=== PATIENT | male | born 1950 | race American Indian/Alaskan Native ===

== ENCOUNTER 2020-02-26 18:15 | Inpatient (IN) | payer OTHER ==
--- NOTE | 2020-02-26 20:39 | Event Note ---
ED Screening Note ED Screening Note: cough with mucus production for a few days chest pain with coughing no fever no v/d no sob no pmhx no allergies to meds HR 112 oxygen 96% on RA This initial assessment/diagnostic orders/clinical plan/treatment(s) is/are subject to change based on patients health status, clinical progression and re-assessment by fellow clinical providers in the ED. Further treatment and workup at subsequent clinical providers discretion. Patient/guardian urged not to elope from the ED as their condition may be serious if not clinically assessed and managed. Initial orders include: CXR, labs, EKG
[2020-02-26 21:11] LABS: Basophils # (Auto) 0.1 K/mm3 (0.0-0.1); Basophils % (Auto) 0.6 % (0.0-1.8); Eosinophils % (Auto) 0.5 % (0.0-4.3); Hematocrit 37.1 % (35.5-45.6); Hemoglobin 12.4 gm/dl (11.8-15.2); Lymphocytes # (Auto) 1.9 K/mm3 (1.2-5.4); Lymphocytes % (Auto) 18.1 % (13.4-35.0); Mean Corpuscular HGB Conc 33 % (32-34); Mean Corpuscular Volume 87 fl (84-94); Monocytes # (Auto) 1.4 K/mm3 (0.0-0.8); Monocytes % (Auto) 13.2 % (0.0-7.3); Platelet Count 434 K/mm3 (140-440); Red Blood Count 4.26 M/mm3 (3.65-5.03); Red Cell Distribution Width 14.6 % (13.2-15.2)
--- NOTE | 2020-02-26 21:19 | XRay Report ---
CHEST 2 VIEWS INDICATION / CLINICAL INFORMATION: cough. COMPARISON: None available. FINDINGS: SUPPORT DEVICES: None. HEART / MEDIASTINUM: No significant abnormality. LUNGS / PLEURA: Patchy bilateral pulmonary opacities are seen. No pneumothorax. ADDITIONAL FINDINGS: No significant additional findings. IMPRESSION: 1. Patchy bilateral pulmonary opacities are concerning for an infectious process, including viral and atypical etiologies. Signer Name: Farzad Weinberg MD Signed: 02/26/2020 9:15 PM Workstation Name: [id number]
[2020-02-26 21:29] LABS: Alanine Aminotransferase 65 units/L (7-56); Albumin 3.5 g/dL (3.9-5); BUN/Creatinine Ratio 10; Blood Urea Nitrogen 11 mg/dL (9-20); Calcium 9.6 mg/dL (8.4-10.2); Hemolysis Index 6
[2020-02-26] MEDS ORDERED: dexAMETHasone 20 MG/5 ML VIAL IV ONE (22:02)
[2020-02-26] MEDS ORDERED: cefTRIAXone/NS 1 GM/50 ML 1 GM/50 ML BAG IV ONE (22:03)
[2020-02-26] MEDS ORDERED: AZITHROMYCIN 500 MG in SODIUM CHLORIDE 0.9% 250ML 250 ML IV ONE (22:03)
--- NOTE | 2020-02-26 22:12 | Emergency Department Report ---
ED Fever HPI - General Chief Complaint: Fever Stated Complaint: FEVER,COUGH PUI?: Yes Time Seen by Provider: 02/26/20 20:36 Source: patient, family Exam Limitations: language barrier - History of Present Illness Initial Comments: CC: fever, cough for a few days HPI: This is a 69 [place] male without significant past medical history who presents with fever, cough fatigue for 2-3 days. Unknown sick contacts. 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 Patient has chest ache with cough. Mild to moderate diffuse chest achiness with cough. Gradual onset of symptoms. Cough is productive. Patient speaks Khmer and German. Nephrew at bedside provided language interpretation. Patient does not smoke tobacco. Timing/Duration: other (2-3 days) Fever Severity/Quality: subjective Fever Therapy ORAL AND MAXILLOFACIAL SURGERY RESIDENT: none Associated Symptoms: chest pain, cough, other (fatigue) ED Review of Systems ROS: Stated complaint: FEVER,COUGH Other details as noted in HPI Comment: All other systems reviewed and negative Constitutional: fever, malaise Respiratory: cough. denies: shortness of breath, wheezing Cardiovascular: chest pain Gastrointestinal: denies: abdominal pain, nausea, vomiting ED Past Medical Hx - Past Medical History Previous Medical History?: No - Surgical History Past Surgical History?: No - Social History Smoking Status: Never Smoker Substance Use Type: None ED Physical Exam - General Limitations: Language Barrier General appearance: alert, in no apparent distress - Head Head exam: Present: atraumatic, normocephalic - Eye Eye exam: Present: normal appearance - ENT ENT exam: Present: mucous membranes moist - Neck Neck exam: Present: normal inspection, full ROM - Respiratory Respiratory exam: Present: normal lung sounds bilaterally, wheezes, decreased breath sounds. Absent: rales, rhonchi, chest wall tenderness, accessory muscle use, prolonged expiratory - Cardiovascular Cardiovascular Exam: Present: normal rhythm, tachycardia, normal heart sounds. Absent: systolic murmur, diastolic murmur, rubs, gallop - GI/Abdominal GI/Abdominal exam: Present: soft, normal bowel sounds. Absent: distended, tenderness, guarding, rebound - Rectal Rectal exam: Present: deferred - Extremities Exam Extremities exam: Present: normal inspection - Neurological Exam Neurological exam: Present: alert, oriented X3 - Psychiatric Psychiatric exam: Present: normal affect, normal mood - Skin Skin exam: Present: warm, dry, intact, normal color. Absent: rash ED Course Vital Signs 02/26/20 19:59 Temperature 98.1 F Pulse Rate 126 H Respiratory 20 Rate Blood Pressure 124/90 O2 Sat by Pulse 94 Oximetry ED Medical Decision Making - Lab Data Result diagrams: 02/26/20 20:52 02/26/20 20:52 Laboratory Results - last 24 hr 02/26/20 02/26/20 20:52 20:52 WBC 10.6 RBC 4.26 Hgb 12.4 Hct 37.1 MCV 87 MCH 29 MCHC 33 RDW 14.6 Plt Count 434 Lymph % (Auto) 18.1 [place] % (Auto) 13.2 H Eos % (Auto) 0.5 Baso % (Auto) 0.6 Lymph # (Auto) 1.9 [place] # (Auto) 1.4 H Eos # (Auto) 0.0 Baso # (Auto) 0.1 Seg Neutrophils % 67.6 Seg Neutrophils # 7.1 Sodium 139 Potassium 4.1 Chloride 103.5 Carbon Dioxide 23 Anion Gap 17 BUN 11 Creatinine 1.1 Estimated GFR > 60 BUN/Creatinine Ratio 10 Glucose 149 H Calcium 9.6 Total Bilirubin 0.60 AST 78 H ALT 65 H Alkaline Phosphatase 55 Troponin T < 0.010 Total Protein 8.2 Albumin 3.5 L Albumin/Globulin Ratio 0.7 - EKG Data -: EKG Interpreted by Wi EKG shows normal: sinus rhythm, axis, intervals, QRS complexes, ST-T waves Rate: tachycardia - EKG Data Interpretation: normal EKG (With exception of tachycardia) 02/26/20 22:14 EKG obtained 2046 EKG interpreted by mo Sinus tachycardia rate 100 bpm normal axis normal intervals no ST-T signs of ischemia - Medical Decision Making Multifocal pneumonia, strong suspicion of COVID-19. Due to age, hypoxia oxygen saturation 94% at rest, large proportion of lung involved on personal review of chest radiograph, patient will benefit from hospitalization. Antibiotics steroids initiated in the emergency department. Patient admitted to the hospital service. Labs reviewed notable for CBC within normal limits, unremarkable differential chemistry reveals mild elevation of AST ALT with normal alk phos normal T bili Patient does not have a history of alcohol use. Differential diagnosis includes fatty liver, viral hepatitis, chronic Tylenol use. Patient will require outpatient evaluation for abnormal liver enzyme levels. Critical care attestation.: If time is entered above; I have spent that time in minutes in the direct care of this critically ill patient, excluding procedure time. ED Disposition Clinical Impression: Multifocal pneumonia, Suspected COVID-19 virus infection Disposition: OP ADMIT IP TO THIS HOSP Is pt being admited?: Yes Does the pt Need Aspirin: No Condition: Fair Instructions: Bacterial Pneumonia (ED)
--- NOTE | 2020-02-26 23:28 | Cat Scan Report ---
CTA chest with contrast INDICATION : P.E. PROTOCOL!!! Patient complains of pleuritic chest pain. TECHNIQUE: Axial imaging performed through the chest, with contrast bolus timing set to maximize opa cification of the pulmonary arteries. 3-plane MIP reformatted images were obtained. All CT scans at this location are performed using CT dose reduction for ALARA by means of automated exposure control. 100 mL of intravenous contrast administered. COMPARISON: Chest x-ray from today FINDINGS: Bolus: Contrast bolus timing is adequate. PTE: No filling defect is present to suggest PTE. Mediastinum: Heart and great vessels appear normal. No pathologic mediastinal adenopathy. Lungs: Patchy multifocal groundglass opacities with a trace left-sided pleural effusion. Upper abdomen: Limited imaging of the upper abdomen shows nothing acute. Bones: Degenerative changes in the spine with nothing acute. IMPRESSION: 1. Negative for PTE. 2. Pulmonary findings as above suggesting an atypical infectious/inflammatory etiology including Covi d pneumonia. Signer Name: Krishna Kenney MD Signed: 02/26/2020 11:24 PM Workstation Name: [id number]
[2020-02-26] MEDS ORDERED: ONDANSETRON 4 MG/2 ML INJ IV PRN (23:47)
[2020-02-26] MEDS ORDERED: MAGNESIUM HYDROXIDE (MOM) ORAL LIQD UDC PO PRN (23:47)
[2020-02-26] MEDS ORDERED: ACETAMINOPHEN 325 MG TAB PO PRN (23:47)
[2020-02-26] MEDS ORDERED: MORPHINE 2 MG/1 ML INJ IV PRN (23:47)
--- NOTE | 2020-02-26 23:53 | History and Physical Report ---
History of Present Illness Date of examination: 02/26/20 Date of admission: 02/26/20 22:03 Chief complaint: Cough Fever History of present illness: 69-year-old [place] male with no significant past medical history presenting to the emergency room today complaining of cough, generalized fatigue and fever which has been ongoing for the past 2 to 3 days. He has had some mild chest discomfort with the cough. Cough is productive of some whitish sputum. 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 Denies any contact with anyone with COVID-19. Brother was up by the bedside was able to interpret as patient speaks minimal Tam[place]ight. Work-up in the emergency room today chest x-ray reveals pneumonia, CT angiogram of the chest was negative for PE and also remarkable for underlying infectious process. Patient commenced on empiric IV antibiotics and also placed on isolation precautions for possible Covid. Past History Past Medical History: No medical history Past Surgical History: No surgical history Social history: no significant social history Family history: no significant family history Medications and Allergies Allergies Allergy/AdvReac Type Severity Reaction Status Date / Time No Known Allergies Allergy Verified 02/26/20 19:37 Review of Systems Constitutional: fever, chills Ears, nose, mouth and throat: no nasal congestion, no sore throat Cardiovascular: no chest pain, no palpitations Respiratory: cough, shortness of breath Genitourinary Male: no dysuria, no hematuria, no flank pain Musculoskeletal: no neck pain, no low back pain Integumentary: no rash, no pruritis Neurological: no headaches, no confusion Psychiatric: no anxiety, no depression Exam - Constitutional Vitals: Temp Pulse Resp BP Pulse Ox 98.1 F 126 H 20 124/90 94 02/26/20 19:59 02/26/20 19:59 02/26/20 19:59 02/26/20 19:59 02/26/20 19:59 General appearance: Present: no acute distress, well-nourished - EENT Eyes: Present: PERRL, EOM intact. Absent: scleral icterus ENT: hearing intact, clear oral mucosa, dentition normal - Neck Neck: Present: supple, normal ROM - Respiratory Respiratory effort: normal Respiratory: bilateral: diminished - Cardiovascular Rhythm: regular Heart Sounds: Present: S1 & S2. Absent: gallop, systolic murmur, diastolic murmur, rub - Extremities Extremities: no ischemia, pulses intact, pulses symmetrical, No edema, Full ROM Peripheral Pulses: within normal limits - Abdominal General gastrointestinal: Present: soft, non-tender, non-distended. Absent: mass - Integumentary Integumentary: Present: clear, warm, dry. Absent: rash - Musculoskeletal Musculoskeletal: strength equal bilaterally - Psychiatric Psychiatric: appropriate mood/affect, intact judgment & insight, memory intact, cooperative - Neurologic Neurologic: CNII-XII intact, no focal deficits, moves all extremities HEART Score - HEART Score Troponin: Troponin T < 0.010 ng/mL (0.00-0.029) 02/26/20 20:52 Results - Labs CBC & Chem 7: 02/26/20 20:52 02/26/20 22:51 Labs: Abnormal lab results 02/26/20 02/26/20 Range/Units 20:52 20:52 [place] % (Auto) 13.2 H (0.0-7.3) % [place] # (Auto) 1.4 H (0.0-0.8) K/mm3 Glucose 149 H (75-100) mg/dL AST 78 H (5-40) units/L ALT 65 H (7-56) units/L Albumin 3.5 L (3.9-5) g/dL Assessment and Plan - Patient Problems (1) Multifocal pneumonia Current Visit: Yes Status: Acute Plan to address problem: Patient placed on empiric IV antibiotics and IV steroid. We will also rule out COVID-19. (2) Suspected COVID-19 virus infection Current Visit: Yes Status: Acute Plan to address problem: Patient placed on isolation precautions and await COVID-19 testing. Consult placed to infectious disease for evaluation. (3) DVT prophylaxis Current Visit: Yes Status: Acute Plan to address problem: Patient placed on subcutaneous Lovenox. (4) Full code status Current Visit: Yes Status: Acute Plan to address problem: Patient is a full code.
[2020-02-27] MEDS: SODIUM CHLORIDE 0.9% 1000 ML 1,000 ML IV SCH (01:31)
[2020-02-27 02:50] LABS: C-Reactive Protein 22.8 mg/dL (0.00-1.30)
[2020-02-27 07:51] LABS: Basophils % (Auto) 0.5 % (0.0-1.8); Hematocrit 36.2 % (35.5-45.6); Lymphocytes % (Auto) 9.9 % (13.4-35.0); Mean Corpuscular HGB Conc 33 % (32-34); Mean Corpuscular Volume 86 fl (84-94); Monocytes # (Auto) 0.4 K/mm3 (0.0-0.8); Monocytes % (Auto) 4.1 % (0.0-7.3); Platelet Count 432 K/mm3 (140-440); Red Blood Count 4.21 M/mm3 (3.65-5.03); Red Cell Distribution Width 14.5 % (13.2-15.2)
[2020-02-27 08:01] LABS: INR 1.21 (0.87-1.13)
[2020-02-27 08:12] LABS: BUN/Creatinine Ratio 11; Blood Urea Nitrogen 11 mg/dL (9-20); Calcium 9.7 mg/dL (8.4-10.2); Hemolysis Index 8
[2020-02-27] MEDS ORDERED: dexAMETHasone 4 MG/ML VIAL IV SCH ×2 (10:00→17:00)
--- NOTE | 2020-02-27 10:50 | Consultation ---
History of Present Illness - Reason for Consult Consult date: 02/27/20 COVID-19 rule out Requesting physician: GUERA BAUTISTA - History of Present Illness The patient is a 69-year-old male admitted to the hospital with cough, shortness of breath and fever going on for 2 to 3 days prior to admission. Upon evaluation in the emergency room, was afebrile, noted to have hypoxia, is currently saturating 95% on 2 L oxygen. COVID-19 test has been ordered but pe nding, CTA negative for pulmonary embolism, showed bilateral atypical pneumonia. Review of Systems: reviewed in the chart, unable to obtain, minimize risk of transmission Past History Past Medical History: No medical history Past Surgical History: No surgical history Social history: no significant social history Family history: no significant family history Medications and Allergies Allergies Allergy/AdvReac Type Severity Reaction Status Date / Time No Known Allergies Allergy Verified 02/26/20 19:37 Home Medications Medication Instructions Recorded Confirmed Last Taken Type No Known Home Medications [No 02/27/20 02/27/20 Unknown History Reported Home Medications] Active Meds: Active Medications Acetaminophen (Acetaminophen 325 Mg Tab) 650 mg PO Q4H PRN PRN Reason: Pain MILD(1-3)/Fever >100.5/WOLFF Dexamethasone (Dexamethasone 4 Mg/Ml Vial) 6 mg IV Q24HR [facility] Stop: 03/06/20 10:01 Last Admin: 02/27/20 09:13 Dose: 6 mg Documented by: Enoxaparin Sodium (Enoxaparin 40 Mg/0.4 Ml Inj) 40 mg SUB-Q QDAY@2200 [facility]; Protocol Sodium Chloride (Nacl 0.9% 1000 Ml) 1,000 mls @ 75 mls/hr IV DIRECT [facility] Last Admin: 02/27/20 01:31 Dose: 75 mls/hr Documented by: Ceftriaxone Sodium (Rocephin/Ns 2 Gm/100 Ml) 2 gm in 100 mls @ 200 mls/hr IV Q24H [facility]; Protocol Azithromycin 500 mg/ Sodium (Chloride) 250 mls @ 250 mls/hr IV Q24H [facility]; Protocol Stop: 03/01/20 22:59 Magnesium Hydroxide (Magnesium Hydroxide (Mom) Oral Liqd Udc) 30 ml PO Q4H PRN PRN Reason: Constipation Morphine Sulfate (Morphine 2 Mg/1 Ml Inj) 2 mg IV Q4H PRN PRN Reason: Pain, Moderate (4-6) Ondansetron HCl (Ondansetron 4 Mg/2 Ml Inj) 4 mg IV Q8H PRN PRN Reason: Nausea And Vomiting Sodium Chloride (Sodium Chloride 0.9% 10 Ml Flush Syringe) 10 ml IV BID [facility] Last Admin: 02/27/20 09:14 Dose: 10 ml Documented by: Sodium Chloride (Sodium Chloride 0.9% 10 Ml Flush Syringe) 10 ml IV PRN PRN PRN Reason: LINE FLUSH Physical Examination - Physical Exam Narrative exam: Physical Exam (reviewed in chart to minimize risk of transmission) Constitutional: deferred Head, Ears, Nose: deferred Eyes: deferred Neck: deferred Oral: deferred Cardiovascular: deferred Respiratory: deferred GI: deferred Musculoskeletal: deferred Skin: deferred Hem/Lymphatic: deferred Psych: deferred Neurological: deferred - Constitutional Vitals: Vital Signs Temp Pulse Resp BP Pulse Ox 99.7 F H 79 18 140/96 97 02/27/20 05:12 02/27/20 05:12 02/27/20 05:12 02/27/20 05:12 02/27/20 05:12 Temperature -Last 24 Hours Temperature 99.7 F Temperature 98.5 F Temperature 99 F Temperature 98.1 F Results - Labs CBC & Chem 7: 02/27/20 07:06 02/27/20 07:06 Labs: Abnormal lab results 02/26/20 02/26/20 02/26/20 Range/Units 20:52 20:52 22:51 Lymph % (Auto) (13.4-35.0) % [place] % (Auto) 13.2 H (0.0-7.3) % Lymph # (Auto) (1.2-5.4) K/mm3 [place] # (Auto) 1.4 H (0.0-0.8) K/mm3 Seg Neutrophils % (40.0-70.0) % Seg Neutrophils # (1.8-7.7) K/mm3 PT (12.2-14.9) Sec. INR (0.87-1.13) D-Dimer 2542.58 H (0-234) ng/mlDDU Potassium (3.6-5.0) mmol/L Glucose 149 H (75-100) mg/dL Ferritin (30.0-300.0) ng/mL AST 78 H (5-40) units/L ALT 65 H (7-56) units/L Lactate Dehydrogenase (91-180) units/L C-Reactive Protein (0.00-1.30) mg/dL Albumin 3.5 L (3.9-5) g/dL 02/26/20 02/26/20 02/27/20 Range/Units 22:51 22:51 07:06 Lymph % (Auto) 9.9 L (13.4-35.0) % [place] % (Auto) (0.0-7.3) % Lymph # (Auto) 1.0 L (1.2-5.4) K/mm3 [place] # (Auto) (0.0-0.8) K/mm3 Seg Neutrophils % 85.5 H (40.0-70.0) % Seg Neutrophils # 8.8 H (1.8-7.7) K/mm3 PT (12.2-14.9) Sec. INR (0.87-1.13) D-Dimer (0-234) ng/mlDDU Potassium (3.6-5.0) mmol/L Glucose 119 H (75-100) mg/dL Ferritin 360.6 H (30.0-300.0) ng/mL AST (5-40) units/L ALT (7-56) units/L Lactate Dehydrogenase 353 H (91-180) units/L C-Reactive Protein 22.80 H (0.00-1.30) mg/dL Albumin (3.9-5) g/dL 02/27/20 02/27/20 Range/Units 07:06 07:06 Lymph % (Auto) (13.4-35.0) % [place] % (Auto) (0.0-7.3) % Lymph # (Auto) (1.2-5.4) K/mm3 [place] # (Auto) (0.0-0.8) K/mm3 Seg Neutrophils % (40.0-70.0) % Seg Neutrophils # (1.8-7.7) K/mm3 PT 15.1 H (12.2-14.9) Sec. INR 1.21 H (0.87-1.13) D-Dimer (0-234) ng/mlDDU Potassium 5.5 H D (3.6-5.0) mmol/L Glucose 208 H (75-100) mg/dL Ferritin (30.0-300.0) ng/mL AST (5-40) units/L ALT (7-56) units/L Lactate Dehydrogenase (91-180) units/L C-Reactive Protein (0.00-1.30) mg/dL Albumin (3.9-5) g/dL - Imaging and Cardiology Chest x-ray: report reviewed, image reviewed (b/l atypical pneumonia) Assessment and Plan Cultures: SARS CoV2 PCR: Pending A/P: 69/M with: #Bilateral pneumonia: Likely secondary to COVID-19. Test is pending at this time. CTA negative for pulmonary embolism. Procalcitonin is normal. #Acute hypoxic respiratory failure #Transaminitis Recs: -IV/PO Dexamethasone 6 mg daily x 10 days -High suspicion for COVID-19, will start IV remdesivir -prophylactic anticoagulation based on d-dimer per hospital protocol -trend ferritin, LDH, d-dimer, CRP every 2-3 days for risk stratification and to assess disease progression -Procalcitonin is low, antibiotics discontinued -get ambulatory sats in AM Mariela Browne MD, FACP [facility] O: [phone] F: [phone]
--- NOTE | 2020-02-27 15:59 | Progress Note ---
Assessment and Plan - Patient Problems (1) Multifocal pneumonia Current Visit: Yes Status: Acute Plan to address problem: Patient placed on empiric IV antibiotics and IV steroid. We will also rule out COVID-19. (2) Suspected COVID-19 virus infection Current Visit: Yes Status: Acute Plan to address problem: Patient is Covid positive if the oxygen requirements are less than the primary team will manage Patient also started on vitamin C and vitamin D and zinc 3) Elevated D-dimer Current Visit: Yes Status: Acute Patient started on Lovenox 100 mg subcu every 12 (4) Full code status Current Visit: Yes Status: Acute Plan to address problem: Patient is a full code. Subjective Date of service: 02/27/20 Interval history: The patient is a 69-year-old male admitted to the hospital with cough, shortness of breath and fever going on for 2 to 3 days prior to admission. Upon evaluation in the emergency room, was afebrile, noted to have hypoxia, is currently saturating 95% on 2 L oxygen. COVID-19 test has been ordered but pending, CTA negative for pulmonary embolism, showed bilateral atypical pne umonia. Review of Systems: reviewed in the chart, unable to obtain, minimize risk of transmission Past History Past Medical History: No medical history Past Surgical History: No surgical history Social history: no significant social history Family history: no significant family history Medications and Allergies Allergies Allergy/AdvReac Type Severity Reaction Status Date / Time No Known Allergies Allergy Verified 02/26/20 19:37 Home Medications Medication Instructions Recorded Confirmed Last Taken Type No Known Home Medications [No 02/27/20 02/27/20 Unknown History Reported Home Medications] Active Meds: Active Medications Acetaminophen (Acetaminophen 325 Mg Tab) 650 mg PO Q4H PRN PRN Reason: Pain MILD(1-3)/Fever >100.5/WOLFF Dexamethasone (Dexamethasone 4 Mg/Ml Vial) 6 mg IV Q24HR [facility] Stop: 03/06/20 10:01 Last Admin: 02/27/20 09:13 Dose: 6 mg Documented by: Enoxaparin Sodium (Enoxaparin 40 Mg/0.4 Ml Inj) 40 mg SUB-Q QDAY@2200 [facility]; Protocol Sodium Chloride (Nacl 0.9% 1000 Ml) 1,000 mls @ 75 mls/hr IV DIRECT [facility] Last Admin: 12/22/20 01:31 Dose: 75 mls/hr Documented by: Ceftriaxone Sodium (Rocephin/Ns 2 Gm/100 Ml) 2 gm in 100 mls @ 200 mls/hr IV Q24H [facility]; Protocol Azithromycin 500 mg/ Sodium (Chloride) 250 mls @ 250 mls/hr IV Q24H [facility]; Protocol Stop: 03/01/20 22:59 Magnesium Hydroxide (Magnesium Hydroxide (Mom) Oral Liqd Udc) 30 ml PO Q4H PRN PRN Reason: Constipation Morphine Sulfate (Morphine 2 Mg/1 Ml Inj) 2 mg IV Q4H PRN PRN Reason: Pain, Moderate (4-6) Ondansetron HCl (Ondansetron 4 Mg/2 Ml Inj) 4 mg IV Q8H PRN PRN Reason: Nausea And Vomiting Sodium Chloride (Sodium Chloride 0.9% 10 Ml Flush Syringe) 10 ml IV BID [facility] Last Admin: 02/27/20 09:14 Dose: 10 ml Documented by: Sodium Chloride (Sodium Chloride 0.9% 10 Ml Flush Syringe) 10 ml IV PRN PRN PRN Reason: LINE FLUSH Objective - Constitutional Vitals: Vital Signs - 12hr 02/27/20 02/27/20 05:12 12:43 Temperature 99.7 F H 98.0 F Pulse Rate 79 91 H Respiratory 18 20 Rate Blood Pressure 140/96 137/92 O2 Sat by Pulse 97 95 Oximetry General appearance: Present: no acute distress, well-nourished - EENT Eyes: PERRL, EOM intact ENT: hearing intact, clear oral mucosa Ears: bilateral: normal - Neck Neck: supple, normal ROM - Respiratory Respiratory effort: normal Respiratory: bilateral: CTA - Breasts Breasts: normal - Cardiovascular Heart rate: 78 Rhythm: regular Heart Sounds: Present: S1 & S2. Absent: gallop, rub Extremities: pulses intact, No edema, normal color, Full ROM - Gastrointestinal General gastrointestinal: Present: soft, non-tender, non-distended, normal bowel sounds - Genitourinary Male genitourinary: normal - Integumentary Integumentary: clear, warm, dry - Musculoskeletal Musculoskeletal: 1, strength equal bilaterally - Neurologic Neurologic: moves all extremities - Psychiatric Psychiatric: memory intact, appropriate mood/affect, intact judgment & insight - Labs CBC & Chem 7: 02/27/20 07:06 02/27/20 07:06 Labs: Abnormal lab results 02/26/20 02/26/20 02/26/20 Range/Units 20:52 20:52 22:51 Lymph % (Auto) (13.4-35.0) % [place] % (Auto) 13.2 H (0.0-7.3) % Lymph # (Auto) (1.2-5.4) K/mm3 [place] # (Auto) 1.4 H (0.0-0.8) K/mm3 Seg Neutrophils % (40.0-70.0) % Seg Neutrophils # (1.8-7.7) K/mm3 PT (12.2-14.9) Sec. INR (0.87-1.13) D-Dimer 2542.58 H (0-234) ng/mlDDU Potassium (3.6-5.0) mmol/L Glucose 149 H (75-100) mg/dL Ferritin (30.0-300.0) ng/mL AST 78 H (5-40) units/L ALT 65 H (7-56) units/L Lactate Dehydrogenase (91-180) units/L C-Reactive Protein (0.00-1.30) mg/dL Albumin 3.5 L (3.9-5) g/dL Coronavirus (PCR) (Negative) 02/26/20 02/26/20 02/27/20 Range/Units 22:51 22:51 07:06 Lymph % (Auto) 9.9 L (13.4-35.0) % [place] % (Auto) (0.0-7.3) % Lymph # (Auto) 1.0 L (1.2-5.4) K/mm3 [place] # (Auto) (0.0-0.8) K/mm3 Seg Neutrophils % 85.5 H (40.0-70.0) % Seg Neutrophils # 8.8 H (1.8-7.7) K/mm3 PT (12.2-14.9) Sec. INR (0.87-1.13) D-Dimer (0-234) ng/mlDDU Potassium (3.6-5.0) mmol/L Glucose 119 H (75-100) mg/dL Ferritin 360.6 H (30.0-300.0) ng/mL AST (5-40) units/L ALT (7-56) units/L Lactate Dehydrogenase 353 H (91-180) units/L C-Reactive Protein 22.80 H (0.00-1.30) mg/dL Albumin (3.9-5) g/dL Coronavirus (PCR) (Negative) 02/27/20 02/27/20 02/27/20 Range/Units 07:06 07:06 Unknown Lymph % (Auto) (13.4-35.0) % [place] % (Auto) (0.0-7.3) % Lymph # (Auto) (1.2-5.4) K/mm3 [place] # (Auto) (0.0-0.8) K/mm3 Seg Neutrophils % (40.0-70.0) % Seg Neutrophils # (1.8-7.7) K/mm3 PT 15.1 H (12.2-14.9) Sec. INR 1.21 H (0.87-1.13) D-Dimer (0-234) ng/mlDDU Potassium 5.5 H D (3.6-5.0) mmol/L Glucose 208 H (75-100) mg/dL Ferritin (30.0-300.0) ng/mL AST (5-40) units/L ALT (7-56) units/L Lactate Dehydrogenase (91-180) units/L C-Reactive Protein (0.00-1.30) mg/dL Albumin (3.9-5) g/dL Coronavirus (PCR) Positive A (Negative) HEART Score - HEART Score Troponin: Troponin T < 0.010 ng/mL (0.00-0.029) 02/26/20 20:52
[2020-02-27] MEDS ORDERED: REMDESIVIR 200 MG in SODIUM CHLORIDE 0.9% 250ML 250 ML IV ONE (17:00)
[2020-02-27] MEDS: ENOXAPARIN 100 MG/1 ML INJ SUB-Q SCH (17:14)
[2020-02-27] MEDS: SODIUM CHLORIDE 0.9% 50 ML IVPB IV SCH (17:14)
[2020-02-27] MEDS: CHOLECALCIFEROL (VIT D3) 1000 UNIT (25 mcg) TAB PO SCH (17:15)
[2020-02-27] MEDS: ZINC SULFATE 220 MG CAP PO SCH (21:43)
[2020-02-27] MEDS: ASCORBIC ACID 500 MG TAB PO SCH (21:43)
[2020-02-27] MEDS ORDERED: AZITHROMYCIN 500 MG in SODIUM CHLORIDE 0.9% 250ML 250 ML IV SCH (22:00)
[2020-02-27] MEDS ORDERED: cefTRIAXone/NS 2 GM/100 ML 2 GM/100 ML BAG IV SCH (22:00)
[2020-02-27] MEDS ORDERED: ENOXAPARIN 40 MG/0.4 ML INJ SUB-Q SCH (22:00)
[2020-02-28] MEDS: ENOXAPARIN 100 MG/1 ML INJ SUB-Q SCH ×2 (05:45→17:28)
[2020-02-28 06:06] LABS: Basophils # (Auto) 0.1 K/mm3 (0.0-0.1); Basophils % (Auto) 0.5 % (0.0-1.8); Hematocrit 33.3 % (35.5-45.6); Hemoglobin 11.1 gm/dl (11.8-15.2); Lymphocytes # (Auto) 2.1 K/mm3 (1.2-5.4); Lymphocytes % (Auto) 13.1 % (13.4-35.0); Mean Corpuscular HGB Conc 33 % (32-34); Mean Corpuscular Volume 87 fl (84-94); Monocytes # (Auto) 1.4 K/mm3 (0.0-0.8); Monocytes % (Auto) 8.7 % (0.0-7.3); Platelet Count 445 K/mm3 (140-440); Red Blood Count 3.85 M/mm3 (3.65-5.03); Red Cell Distribution Width 14.4 % (13.2-15.2)
[2020-02-28] MEDS: SODIUM CHLORIDE 0.9% 1000 ML 1,000 ML IV SCH (06:07)
[2020-02-28 06:28] LABS: Alanine Aminotransferase 128 units/L (7-56); BUN/Creatinine Ratio 15; Blood Urea Nitrogen 12 mg/dL (9-20); Calcium 9.2 mg/dL (8.4-10.2); Hemolysis Index 3
[2020-02-28] MEDS ORDERED: DEXAMETHASONE 4 MG TAB PO SCH (10:00)
[2020-02-28] MEDS: ASCORBIC ACID 500 MG TAB PO SCH ×2 (10:02→21:59)
[2020-02-28] MEDS: ZINC SULFATE 220 MG CAP PO SCH ×2 (10:02→22:00)
[2020-02-28] MEDS: CHOLECALCIFEROL (VIT D3) 1000 UNIT (25 mcg) TAB PO SCH (10:02)
[2020-02-28] MEDS: dexAMETHasone 4 MG/ML VIAL IV SCH (10:03)
--- NOTE | 2020-02-28 12:53 | Consultation ---
History of Present Illness Consult date: 02/28/20 Requesting physician: SHELLI DAVILA Reason for consult: hypoxemia History of present illness: 69 [facility]. Found to have COVID 19. patient only speaks minimal french so history is from chart. Remainder is negative. Past History Past Medical History: No medical history Past Surgical History: No surgical history Social history: no significant social history Family history: no significant family history Medications and Allergies Allergies Allergy/AdvReac Type Severity Reaction Status Date / Time No Known Allergies Allergy Verified 02/26/20 19:37 Home Medications Medication Instructions Recorded Confirmed Last Taken Type No Known Home Medications [No 02/27/20 02/27/20 Unknown History Reported Home Medications] Active Meds: Active Medications Acetaminophen (Acetaminophen 325 Mg Tab) 650 mg PO Q4H PRN PRN Reason: Pain MILD(1-3)/Fever >100.5/WOLFF Ascorbic Acid (Ascorbic Acid 500 Mg Tab) 1,000 mg PO BID [facility] Last Admin: 02/28/20 10:02 Dose: 1,000 mg Documented by: Cholecalciferol (Cholecalciferol (Vit D3) 1000 Unit (25 Mcg) Tab) 1,000 unit PO QDAY [facility] Last Admin: 02/28/20 10:02 Dose: 1,000 unit Documented by: Dexamethasone (Dexamethasone 4 Mg/Ml Vial) 8 mg IV Q24H [facility] Stop: 03/06/20 12:00 Last Admin: 02/28/20 10:03 Dose: 8 mg Documented by: Enoxaparin Sodium (Enoxaparin 100 Mg/1 Ml Inj) 100 mg SUB-Q Q12H [facility]; Protocol Last Admin: 02/28/20 05:45 Dose: 100 mg Documented by: REMDESIVIR 100 mg/ Sodium (Chloride) 250 mls @ 500 mls/hr IV Q24HR@2100 [facility] Stop: 03/02/20 21:29 Magnesium Hydroxide (Magnesium Hydroxide (Mom) Oral Liqd Udc) 30 ml PO Q4H PRN PRN Reason: Constipation Morphine Sulfate (Morphine 2 Mg/1 Ml Inj) 2 mg IV Q4H PRN PRN Reason: Pain, Moderate (4-6) Ondansetron HCl (Ondansetron 4 Mg/2 Ml Inj) 4 mg IV Q8H PRN PRN Reason: Nausea And Vomiting Sodium Chloride (Sodium Chloride 0.9% 10 Ml Flush Syringe) 10 ml IV BID [facility] Last Admin: 02/28/20 10:02 Dose: 10 ml Documented by: Sodium Chloride (Sodium Chloride 0.9% 10 Ml Flush Syringe) 10 ml IV PRN PRN PRN Reason: LINE FLUSH Sodium Chloride (Sodium Chloride 0.9% 50 Ml Ivpb) 50 ml IV Q24HR@2100 [facility] Stop: 03/02/20 21:01 Last Admin: 02/27/20 17:14 Dose: 50 ml Documented by: Zinc Sulfate (Zinc Sulfate 220 Mg Cap) 220 mg PO BID [facility] Last Admin: 02/28/20 10:02 Dose: 220 mg Documented by: Physical Examination Vital signs: Vital Signs Temp Pulse Resp BP Pulse Ox 98.1 F 126 H 20 124/90 94 02/26/20 19:59 02/26/20 19:59 02/26/20 19:59 02/26/20 19:59 02/26/20 19:59 Patient not examined in person to preserve PPE during the global pandemic of COVID 19 Results - Laboratory Findings CBC and BMP: 02/28/20 05:00 02/28/20 05:00 PT/INR, D-dimer PT 15.1 Sec. (12.2-14.9) H 02/27/20 07:06 INR 1.21 (0.87-1.13) H 02/27/20 07:06 D-Dimer 2542.58 ng/mlDDU (0-234) H 02/26/20 22:51 Abnormal lab findings: Abnormal Labs 02/26/20 02/26/20 02/26/20 20:52 20:52 22:51 WBC Hgb Hct Plt Count Lymph % (Auto) [place] % (Auto) 13.2 H Lymph # (Auto) [place] # (Auto) 1.4 H Seg Neutrophils % Seg Neutrophils # PT INR D-Dimer 2542.58 H Potassium Glucose 149 H Ferritin AST 78 H ALT 65 H Lactate Dehydrogenase C-Reactive Protein Albumin 3.5 L Coronavirus (PCR) 02/26/20 02/26/20 02/27/20 22:51 22:51 07:06 WBC Hgb Hct Plt Count Lymph % (Auto) 9.9 L [place] % (Auto) Lymph # (Auto) 1.0 L [place] # (Auto) Seg Neutrophils % 85.5 H Seg Neutrophils # 8.8 H PT INR D-Dimer Potassium Glucose 119 H Ferritin 360.6 H AST ALT Lactate Dehydrogenase 353 H C-Reactive Protein 22.80 H Albumin Coronavirus (PCR) 02/27/20 02/27/20 02/27/20 07:06 07:06 Unknown WBC Hgb Hct Plt Count Lymph % (Auto) [place] % (Auto) Lymph # (Auto) [place] # (Auto) Seg Neutrophils % Seg Neutrophils # PT 15.1 H INR 1.21 H D-Dimer Potassium 5.5 H D Glucose 208 H Ferritin AST ALT Lactate Dehydrogenase C-Reactive Protein Albumin Coronavirus (PCR) Positive A 02/28/20 02/28/20 05:00 05:00 WBC 15.8 H Hgb 11.1 L Hct 33.3 L Plt Count 445 H Lymph % (Auto) 13.1 L [place] % (Auto) 8.7 H Lymph # (Auto) [place] # (Auto) 1.4 H Seg Neutrophils % 77.7 H Seg Neutrophils # 12.2 H PT INR D-Dimer Potassium Glucose 147 H Ferritin AST 132 H ALT 128 H Lactate Dehydrogenase C-Reactive Protein Albumin 3.0 L Coronavirus (PCR) - Diagnostic Findings Chest x-ray: image reviewed CT scan - chest: image reviewed Assessment and Plan 1. Agree with steroids and remdesivir 2. Supplemental O2, but wean for sats >88% 3. Prone during the day and sleep prone at night 4. Stopped IVF's as long as patient is eating and drinking adequately 5. Guarded prognosis.
--- NOTE | 2020-02-28 14:18 | Progress Note ---
Assessment and Plan Cultures: SARS CoV2 PCR: positive A/P: 69/M with: #Bilateral pneumonia: secondary to COVID-19. CTA negative for pulmonary embolism. Procalcitonin is normal. #Acute hypoxic respiratory failure #Transaminitis Recs: -IV/PO Dexamethasone 6 mg daily x 10 days -continue IV remdesivir, D2 -prophylactic anticoagulation based on d-dimer per hospital protocol -trend ferritin, LDH, d-dimer, CRP every 2-3 days for risk stratification and to assess disease progression -get ambulatory sats in AM, if better, can discharge, does not need to complete full course of Remdesivir Mariela Browne MD, FACP [facility] ([facility] O: [phone] F: [phone] Subjective Date of service: 02/28/20 Interval history: no fever. on oxygen. Objective - Exam Narrative Exam: Physical Exam (reviewed in chart to minimize risk of transmission) Constitutional: deferred Head, Ears, Nose: deferred Eyes: deferred Neck: deferred Oral: deferred Cardiovascular: deferred Respiratory: deferred GI: deferred Musculoskeletal: deferred Skin: deferred Hem/Lymphatic: deferred Psych: deferred Neurological: deferred - Constitutional Vitals: Vital Signs Temp Pulse Resp BP Pulse Ox 97.8 F 80 20 160/105 97 02/28/20 11:47 02/28/20 11:47 02/28/20 11:47 02/28/20 11:47 02/28/20 11:47 Temperature -Last 24 Hours Temperature 97.8 F Temperature 97.8 F Temperature 98.5 F Temperature 97.3 F - Labs CBC & Chem 7: 02/28/20 05:00 02/28/20 05:00 Labs: Abnormal lab results 02/28/20 02/28/20 Range/Units 05:00 05:00 WBC 15.8 H (4.5-11.0) K/mm3 Hgb 11.1 L (11.8-15.2) gm/dl Hct 33.3 L (35.5-45.6) % Plt Count 445 H (140-440) K/mm3 Lymph % (Auto) 13.1 L (13.4-35.0) % [place] % (Auto) 8.7 H (0.0-7.3) % [place] # (Auto) 1.4 H (0.0-0.8) K/mm3 Seg Neutrophils % 77.7 H (40.0-70.0) % Seg Neutrophils # 12.2 H (1.8-7.7) K/mm3 Glucose 147 H (75-100) mg/dL AST 132 H (5-40) units/L ALT 128 H (7-56) units/L Albumin 3.0 L (3.9-5) g/dL
--- NOTE | 2020-02-28 18:28 | Progress Note ---
Assessment and Plan - Patient Problems (1) Multifocal pneumonia Current Visit: Yes Status: Acute Plan to address problem: Patient placed on empiric IV antibiotics and IV steroid. We will also rule out COVID-19. (2) Suspected COVID-19 virus infection Current Visit: Yes Status: Acute Plan to address problem: Patient is Covid positive if the oxygen requirements are less than the primary team will manage Patient also started on vitamin C and vitamin D and zinc Patient on 5 L of nasal cannula oxygen Otherwise comfortable 3) Elevated D-dimer Current Visit: Yes Status: Acute Patient started on Lovenox 100 mg subcu every 12 (4) Full code status Current Visit: Yes Status: Acute Plan to address problem: Patient is a full code. Subjective Date of service: 02/28/20 Principal diagnosis: COVID-19 positive test (U07.1, COVID-19) with Acute Pneumonia (J12.89, O Interval history: 69-year-old [place] male with no significant past medical history presenting to the emergency room today complaining of cough, generalized fatigue and fever which has been ongoing for the past 2 to 3 days. He has had some mild chest discomfort with the cough. Cough is productive of some whitish sputum. Patient works at a [employer] and denies any sick contacts and denies any recent travel. Denies any contact with anyone with COVID-19. Brother was up by the bedside was able to interpret as patient speaks minimal Japanese. Work-up in the emergency room today chest x-ray reveals pneumonia, CT angiogram of the chest was negative for PE and also remarkable for underlying infectious process. Patient commenced on empiric IV antibiotics and also placed on isolation precautions for possible Covid. Day #2 02/28/2020 Patient on about 5 L of nasal cannula oxygen Objective - Constitutional Vitals: Vital Signs - 12hr 02/28/20 11:47 Temperature 97.8 F Pulse Rate 80 Respiratory 20 Rate Blood Pressure 160/105 O2 Sat by Pulse 97 Oximetry General appearance: Present: no acute distress, well-nourished - EENT Eyes: PERRL, EOM intact ENT: hearing intact, clear oral mucosa Ears: bilateral: normal - Neck Neck: supple, normal ROM - Respiratory Respiratory effort: normal Respiratory: bilateral: CTA - Breasts Breasts: normal - Cardiovascular Heart rate: 78 Rhythm: regular Heart Sounds: Present: S1 & S2. Absent: gallop, rub Extremities: pulses intact, No edema, normal color, Full ROM - Gastrointestinal General gastrointestinal: Present: soft, non-tender, non-distended, normal bowel sounds - Genitourinary Male genitourinary: normal - Integumentary Integumentary: clear, warm, dry - Musculoskeletal Musculoskeletal: 1, strength equal bilaterally - Neurologic Neurologic: moves all extremities - Psychiatric Psychiatric: memory intact, appropriate mood/affect, intact judgment & insight - Labs CBC & Chem 7: 02/28/20 05:00 02/28/20 05:00 Labs: Abnormal lab results 02/28/20 02/28/20 Range/Units 05:00 05:00 WBC 15.8 H (4.5-11.0) K/mm3 Hgb 11.1 L (11.8-15.2) gm/dl Hct 33.3 L (35.5-45.6) % Plt Count 445 H (140-440) K/mm3 Lymph % (Auto) 13.1 L (13.4-35.0) % [place] % (Auto) 8.7 H (0.0-7.3) % [place] # (Auto) 1.4 H (0.0-0.8) K/mm3 Seg Neutrophils % 77.7 H (40.0-70.0) % Seg Neutrophils # 12.2 H (1.8-7.7) K/mm3 Glucose 147 H (75-100) mg/dL AST 132 H (5-40) units/L ALT 128 H (7-56) units/L Albumin 3.0 L (3.9-5) g/dL HEART Score - HEART Score Troponin: Troponin T < 0.010 ng/mL (0.00-0.029) 02/26/20 20:52
[2020-02-28] MEDS ORDERED: REMDESIVIR 100 MG in SODIUM CHLORIDE 0.9% 250ML 250 ML IV SCH (21:00)
[2020-02-28] MEDS: SODIUM CHLORIDE 0.9% 50 ML IVPB IV SCH (22:00)
[2020-02-29 05:59] VITALS: BP 141/96
[2020-02-29] MEDS: ENOXAPARIN 100 MG/1 ML INJ SUB-Q SCH ×2 (06:05→17:21)
[2020-02-29 06:40] LABS: Alanine Aminotransferase 101 units/L (7-56); Albumin 2.9 g/dL (3.9-5)
[2020-02-29 06:41] LABS: Bilirubin,Direct < 0.2 mg/dL (0-0.2)
[2020-02-29] MEDS: dexAMETHasone 4 MG/ML VIAL IV SCH (10:21)
[2020-02-29] MEDS: ASCORBIC ACID 500 MG TAB PO SCH (10:21)
[2020-02-29] MEDS: CHOLECALCIFEROL (VIT D3) 1000 UNIT (25 mcg) TAB PO SCH (10:22)
[2020-02-29] MEDS: ZINC SULFATE 220 MG CAP PO SCH (10:22)
--- NOTE | 2020-02-29 11:15 | Progress Note ---
Assessment and Plan 1. Agree with steroids and remdesivir 2. Supplemental O2, but wean for sats >88%. currently on 2 liters NC 3. Prone during the day and sleep prone at night 4. Stopped IVF's as long as patient is eating and drinking adequately 5. Guarded prognosis. Subjective Date of service: 02/29/20 Principal diagnosis: COVID-19 positive test (U07.1, COVID-19) with Acute Pneumonia (J12.89, O Interval history: No acute events. Currently on 2 liters NC. Stable Objective Vital Signs - 12hr 02/29/20 02/29/20 05:32 08:01 Temperature 98.3 F Pulse Rate 76 Respiratory 19 Rate Blood Pressure 141/96 O2 Sat by Pulse 97 97 Oximetry CBC and BMP: 02/28/20 05:00 02/28/20 05:00 ABG, PT/INR, D-dimer: PT/INR, D-dimer PT 15.1 Sec. (12.2-14.9) H 02/27/20 07:06 INR 1.21 (0.87-1.13) H 02/27/20 07:06 D-Dimer 2542.58 ng/mlDDU (0-234) H 02/26/20 22:51 Abnormal lab findings: Abnormal Labs 02/26/20 02/26/20 02/26/20 20:52 20:52 22:51 WBC Hgb Hct Plt Count Lymph % (Auto) [place] % (Auto) 13.2 H Lymph # (Auto) [place] # (Auto) 1.4 H Seg Neutrophils % Seg Neutrophils # PT INR D-Dimer 2542.58 H Potassium Glucose 149 H Ferritin AST 78 H ALT 65 H Lactate Dehydrogenase C-Reactive Protein Albumin 3.5 L Coronavirus (PCR) 02/26/20 02/26/20 02/27/20 22:51 22:51 07:06 WBC Hgb Hct Plt Count Lymph % (Auto) 9.9 L [place] % (Auto) Lymph # (Auto) 1.0 L [place] # (Auto) Seg Neutrophils % 85.5 H Seg Neutrophils # 8.8 H PT INR D-Dimer Potassium Glucose 119 H Ferritin 360.6 H AST ALT Lactate Dehydrogenase 353 H C-Reactive Protein 22.80 H Albumin Coronavirus (PCR) 02/27/20 02/27/20 02/27/20 07:06 07:06 Unknown WBC Hgb Hct Plt Count Lymph % (Auto) [place] % (Auto) Lymph # (Auto) [place] # (Auto) Seg Neutrophils % Seg Neutrophils # PT 15.1 H INR 1.21 H D-Dimer Potassium 5.5 H D Glucose 208 H Ferritin AST ALT Lactate Dehydrogenase C-Reactive Protein Albumin Coronavirus (PCR) Positive A 02/28/20 02/28/20 02/29/20 05:00 05:00 05:11 WBC 15.8 H Hgb 11.1 L Hct 33.3 L Plt Count 445 H Lymph % (Auto) 13.1 L [place] % (Auto) 8.7 H Lymph # (Auto) [place] # (Auto) 1.4 H Seg Neutrophils % 77.7 H Seg Neutrophils # 12.2 H PT INR D-Dimer Potassium Glucose 147 H Ferritin AST 132 H 60 H ALT 128 H 101 H Lactate Dehydrogenase C-Reactive Protein Albumin 3.0 L 2.9 L Coronavirus (PCR)
--- NOTE | 2020-02-29 14:01 | Progress Note ---
Assessment and Plan Cultures: SARS CoV2 PCR: positive A/P: 69/M with: #Bilateral pneumonia: secondary to COVID-19. CTA negative for pulmonary embolism. Procalcitonin is normal. #Acute hypoxic respiratory failure #Transaminitis Recs: -IV/PO Dexamethasone 6 mg daily x 10 days -continue IV remdesivir, D3 -prophylactic anticoagulation based on d-dimer per hospital protocol -trend ferritin, LDH, d-dimer, CRP every 2-3 days for risk stratification and to assess disease progression -get ambulatory sats in AM, if better, can discharge, does not need to complete full course of Remdesivir Mariela Browne MD, FACP [facility] ([facility]) O: [phone] F: [phone] Subjective Date of service: 02/29/20 Principal diagnosis: COVID-19 positive test (U07.1, COVID-19) with Acute Pneumonia (J12.89, O Interval history: no fever. remains on oxygen. Objective - Exam Narrative Exam: Physical Exam (reviewed in chart to minimize risk of transmission) Constitutional: deferred Head, Ears, Nose: deferred Eyes: deferred Neck: deferred Oral: deferred Cardiovascular: deferred Respiratory: deferred GI: deferred Musculoskeletal: deferred Skin: deferred Hem/Lymphatic: deferred Psych: deferred Neurological: deferred - Constitutional Vitals: Vital Signs Temp Pulse Resp BP Pulse Ox 98.3 F 76 19 141/96 97 02/29/20 05:32 02/29/20 05:32 02/29/20 05:32 02/29/20 05:32 02/29/20 08:01 Temperature -Last 24 Hours Temperature 98.3 F Temperature 97.5 F Temperature 97.6 F - Labs CBC & Chem 7: 02/28/20 05:00 02/28/20 05:00 Labs: Abnormal lab results 02/29/20 02/29/20 Range/Units 05:11 12:51 POC Glucose 190 H (70-105) mg/dL AST 60 H (5-40) units/L ALT 101 H (7-56) units/L Albumin 2.9 L (3.9-5) g/dL
--- NOTE | 2020-02-29 19:04 | Discharge Summary ---
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 He has had some mild chest discomfort with the cough. Cough is productive of some whitish sputum. Patient works at a [employer] and denies any sick contacts and denies any recent travel. Denies any contact with anyone with COVID-19. Brother was up by the bedside was able to interpret as patient speaks minimal Danish. Work-up in the emergency room today chest x-ray reveals pneumonia, CT angiogram of the chest was negative for PE and also remarkable for underlying infectious process. Patient commenced on empiric IV antibiotics and also placed on isolation precautions for possible Covid. Day #2 02/28/2020 Patient on about 5 L of nasal cannula oxygen Day #3 02/29/2020 Patient did well on room air today Ambulatory sats are around 96% Did not desaturate Assessment and Plan - Patient Problems (1) Multifocal pneumonia Current Visit: Yes Status: Acute Plan to address problem: Antibiotics discontinued (2) Suspected COVID-19 virus infection Current Visit: Yes Status: Acute Plan to address problem: Patient is doing well on room air Patient to be discharged Patient given instructions on quarantine and not exposing others to coronavirus for the next 14 days Wait to wear mask all the time at home 3) Elevated D-dimer Current Visit: Yes Status: Acute Patient started on Lovenox 100 mg subcu every 12 Patient to be discharged on Eliquis starter pack (4) Full code status Current Visit: Yes Status: Acute Plan to address problem: Patient is a full code. Disposition: DC-01 TO HOME OR SELFCARE Time spent for discharge: 35 minutes - Discharge Diagnoses (1) Pneumonia due to 2019-nCoV Status: Acute Comment: Patient did well over the last 72 hours now patient on room air and ambulatory oxygen is about 96 (2) Multifocal pneumonia Status: Acute Comment: No need for antibiotics (3) D-dimer, elevated Status: Acute Comment: On Eliquis starter pack Core Measure Documentation - Palliative Care Palliative Care/ Comfort Measures: Not Applicable - Core Measures Any of the following diagnoses?: none Exam - Constitutional Vitals: Temp Pulse Resp BP Pulse Ox 98.3 F 76 19 141/96 97 02/29/20 05:32 02/29/20 05:32 02/29/20 05:32 02/29/20 05:32 02/29/20 08:01 General appearance: Present: no acute distress, well-nourished - EENT Eyes: Present: PERRL ENT: hearing intact, clear oral mucosa - Neck Neck: Present: supple, normal ROM - Respiratory Respiratory effort: normal Respiratory: bilateral: CTA - Cardiovascular Heart rate: 76 Rhythm: regular Heart Sounds: Present: S1 & S2. Absent: rub, click - Extremities Extremities: pulses symmetrical, No edema Peripheral Pulses: within normal limits - Abdominal General gastrointestinal: Present: soft, non-tender, non-distended, normal bowel sounds Male genitourinary: Present: normal - Integumentary Integumentary: Present: clear, warm, dry - Musculoskeletal Musculoskeletal: gait normal, strength equal bilaterally - Psychiatric Psychiatric: appropriate mood/affect, intact judgment & insight - Neurologic Neurologic: CNII-XII intact, moves all extremities Plan Activity: no restrictions Diet: regular Follow up with: PRIMARY CARE, [Primary Care Provider] - 7 Days
[2020-03-01] MEDS ORDERED: DEXAMETHASONE 4 MG TAB PO SCH (10:00)
== END 2020-02-29 20:12 | disposition home or self-care (01) | DRG 177 ==
LOC: ED 18:15 → 3A 22:03 → OBSVTOIN 02-28 16:35
PROVIDERS: ADMIT Internal Medicine Geriatric Medicine; ATTEND Internal Medicine
PROC: XW033E5 Introduction of Remdesivir Anti-infective into Peripheral Vein, Percutaneous Approach, New Technology Group 5 (ICD-10-PCS; principal; 2020-02-27)
DX: U07.1 COVID-19 (principal); J12.89 Other viral pneumonia; J96.01 Acute respiratory failure with hypoxia; R74.01 Elevation of levels of liver transaminase levels; Z99.81 Dependence on supplemental oxygen
CPT/HCPCS: 36415; 71046; 71275; 80048; 80053; 80076; 82728; 82947; 82962; 83615; 84145; 84484; 85025; 85379; 85610; 86140; 87040; 93005; 94760; 96365; 96375; G0378; J0456; J0696; J1100; J1650; J7030; J7050; Q9967; U0003